=== PATIENT | female | born 2000 | race Caucasian/White ===

== ENCOUNTER 2018-09-17 11:29 | Emergency (ER) | payer OTHER ==
[2018-09-17 11:48] VITALS: BP 128/65
--- NOTE | 2018-09-17 11:59 | UC ---
Ear Complaint HPI - HPI Summary HPI Summary: left ear pain and fullness x 5 days difficulty hearing with her left ear , nasal congestion , pnd , no sore throat , no fever, no chill - History of Current Complaint Chief Complaint: UCEar Stated Complaint: LEFT EAR CONCERN Time Seen by Provider: 09/17/18 11:45 Hx Obtained From: Patient Hx Last Menstrual Period: 09/03/18 Onset/Duration: Gradual Onset, Lasting Days, Still Present Severity Initially: Moderate Severity Currently: Moderate Pain Intensity: 0 Aggravating Factors: Nothing Alleviating Factors: Nothing - Allergies/Home Medications Allergies/Adverse Reactions: Allergies Allergy/AdvReac Type Severity Reaction Status Date / Time acetaminophen Allergy "I get a Verified 09/17/18 11:43 really high fever." pseudoephedrine Allergy Vomiting Verified 09/17/18 11:43 [From [facility]] Home Medications: Home Medications Albuterol HFA INHALER* [Ventolin HFA Inhaler*] 1 - 2 puff INH Q4H PRN 09/17/18 [ History Confirmed 09/17/18] Control Pill 1 tab PO DAILY 09/17/18 [History Confirmed 09/17/18] LoraTADine TAB(NF) [Claritin 10 MG TAB(NF)] 10 mg PO DAILY 09/17/18 [History Confirmed 09/17/18] Sertraline* [Zoloft*] 50 mg PO DAILY 09/17/18 [History Confirmed 09/17/18] PMH/Surg Hx/FS Hx/Imm Hx Previously Healthy: Yes - Surgical History Surgical History: Yes Surgery Procedure, Year, and Place: T&A, ~2010[facility] - Family History Known Family History: Positive: None, Unknown - Social History Alcohol Use: None Substance Use Type: None Smoking Status (MU): Never Smoked Tobacco - Immunization History Most Recent Influenza Vaccination: none Vaccination Up to Date: Yes Review of Systems All Other Systems Reviewed And Are Negative: Yes Constitutional: Positive: Negative Skin: Positive: Negative Eyes: Positive: Negative ENT: Positive: Ear Ache Respiratory: Positive: Negative Cardiovascular: Positive: Negative Is Patient Immunocompromised?: No Physical Exam Triage Information Reviewed: Yes Appearance: Well-Appearing, No Pain Distress, Well-Nourished Vital Signs: Initial Vital Signs Temp 98.2 F 09/17/18 11:41 Pulse 80 05/16/19 11:41 Resp 18 09/17/18 11:41 BP 128/65 09/17/18 11:41 Pulse Ox 100 09/17/18 11:41 Vital Signs Reviewed: Yes Eye Exam: Normal Eyes: Positive: Conjunctiva Clear ENT: Positive: Normal ENT inspection, Hearing grossly normal, Pharynx normal, TM bulging, TM dull. Negative: Pharyngeal erythema, Nasal congestion, Nasal drainage, TMs normal, TM red, Tonsillar swelling, Tonsillar exudate, Trismus, Muffled voice Neck exam: Normal Neck: Positive: Supple, Nontender, No Lymphadenopathy Respiratory: Positive: Chest non-tender, Lungs clear, Normal breath sounds, No respiratory distress Cardiovascular: Positive: RRR, No Murmur, Pulses Normal Skin Exam: Normal Ear Complaint Course/Dx - Differential Dx/Diagnosis Provider Diagnosis: Eustachian tube dysfunction Discharge - Sign-Out/Discharge Documenting (check all that apply): Patient Departure, Post-Discharge Follow Up All imaging exams completed and their final reports reviewed: No Studies - Discharge Plan Condition: Stable Disposition: HOME Patient Education Materials: Earache (ED) Referrals: Alexander Albert [Primary Care Provider] - If Needed Additional Instructions: no ear infection / no cerumen impaction may use Flonase nasal spray daily - Billing Disposition and Condition Condition: STABLE Disposition: Home
== END 2018-09-17 12:16 | disposition home or self-care (01) ==
LOC: UCCORT 11:29
DX: H69.82 Other specified disorders of Eustachian tube, left ear (principal); Z88.8 Allergy status to other drugs, medicaments and biological substances
CPT/HCPCS: 99211; G0463